=== PATIENT | male | born 1955 | race Caucasian/White ===

== ENCOUNTER 2019-08-31 00:25 | Observation (INO) ==
[2019-08-31] MEDS ORDERED: Isovue-370 500 ML BOTTLE IVP ONE (00:46)
[2019-08-31] MEDS ORDERED: *HR* FentaNYL (PF) 100 MCG/2 ML VIAL IVP ONE ×2 (00:47→21:55)
[2019-08-31 01:32] LABS: Basophils # 0.1 K/mcL (0.0-0.2); Basophils % 0.6 %; Eosinophils # 0.4 K/mcL (0.0-0.6); Eosinophils % 3.9 %; Hematocrit 40.6 % (37.5-50.1); Hemoglobin 13.2 g/dL (12.9-16.9); Immature Granulocytes % 0.4 % (0-4); Lymphocytes # 1.6 K/mcL (0.6-4.6); Lymphocytes % 17.5 %; Mean Corpuscular HGB Conc 32.5 g/dL (31.6-35.5); Mean Corpuscular Hemoglobin 29.3 pg (28.0-33.3); Mean Corpuscular Volume 90.2 fL (83.0-100.0); Mean Platelet Volume 11.4 fL (9.4-12.4); Monocytes # 0.7 K/mcL (0.0-1.3); Monocytes % 7.4 %; Neutrophils # 6.3 K/mcL (1.6-8.9); Platelet Count 250 K/mcL (140-400); Red Cell Distribution Width 13.2 % (11.5-14.5); Segmented Neutrophils % 70.2 %
[2019-08-31 01:41] LABS: INR 1.7; Prothrombin Time 19.6 Seconds (9.4-12.1)
[2019-08-31 01:44] LABS: Activated Partial Thrombo Time 38.9 Seconds (26.0-36.0)
[2019-08-31 01:52] LABS: Albumin 4.1 g/dL (3.5-5.7); Albumin/Globulin Ratio 1.5 (1.1-2.2); Bilirubin,Indirect 0.5 mg/dL (0.0-1.2); Bilirubin,Total 0.5 mg/dL (0.3-1.0); Globulin 2.8 g/dL (2.4-3.5); Total Protein 6.9 g/dL (6.4-8.9)
[2019-08-31 01:59] LABS: BUN/Creatinine Ratio 13 (6-26); Blood Urea Nitrogen 14 mg/dL (8-23); Carbon Dioxide 21 mEq/L (23-29); Chloride 93 mEq/L (98-107); Osmolality,Calculated 288 (280-300); Potassium 4.1 mEq/L (3.5-5.1); Sodium 127 mEq/L (136-145); Troponin I < 0.03 ng/mL (< 0.04); eGFR For African Americans > 60 (> 60); eGFR For Non-African Americans > 60 (> 60)
[2019-08-31 02:30] LABS: Glucose 515 mg/dL (70-105)
[2019-08-31] MEDS ORDERED: cefTRIAXone 1,000 MG in Water for inj. (sterile) 10 ML IVP ONE (03:15)
[2019-08-31] MEDS ORDERED: Azithromycin 500 MG in 0.9 % Sodium Chloride 250 ML IVPB ONE (03:15)
[2019-08-31] MEDS ORDERED: 0.9 % Sodium Chloride 1,000 ML IVC ONE (03:16)
[2019-08-31] MEDS ORDERED: Insulin Regular, Human 100 UNIT/ML SQ ONE (03:17)
[2019-08-31] MEDS ORDERED: *HR* Dextrose 50 % in Water (Syg) 50 ML SYRINGE IVP PRN ×2 (04:42→09:28)
[2019-08-31] MEDS ORDERED: D5% in Water 1,000 ML IVC PRN ×2 (04:42→09:28)
[2019-08-31] MEDS ORDERED: Morphine Sulfate 2 MG/ML SYRINGE IVP PRN ×2 (04:42→20:00)
[2019-08-31] MEDS ORDERED: Aspirin 325 MG TABLET PO ONE (04:42)
[2019-08-31] MEDS ORDERED: Dextrose Gel 15 GM/37.5 ML TUBE PO PRN ×4 (04:42→09:28)
[2019-08-31] MEDS ORDERED: Naloxone 0.4 MG/ML INJ IVP PRN (04:42)
[2019-08-31] MEDS ORDERED: 0.9 % Sodium Chloride 1,000 ML IVC SCH (04:45)
[2019-08-31] MEDS ORDERED: Insulin LISPRO 300 UNITS/3 ML VIAL SQ SCH (04:52)
[2019-08-31] MEDS ORDERED: Morphine Sulfate 2 MG/ML SYRINGE IVP ONE (04:55)
[2019-08-31] MEDS ORDERED: *HR* Heparin 5,000 UNIT/ML VIAL IVP ONE (05:02)
[2019-08-31] MEDS ORDERED: *HR* Heparin 5,000 UNIT/ML VIAL IVP PRN ×2 (05:02)
[2019-08-31] MEDS ORDERED: Heparin 25,000 UNIT/250 ML D5W 25,000 UNIT/250 ML IV.SOLN IVC SCH (05:15)
[2019-08-31] MEDS ORDERED: Benzonatate 100 MG CAPSULE PO PRN (06:02)
[2019-08-31 07:03] LABS: Heparin anti-factor XA UFH 0.05 IU/mL (0.30-0.70)
[2019-08-31 07:04] LABS: INR 1.8; Prothrombin Time 20.8 Seconds (9.4-12.1)
[2019-08-31 08:31] LABS: VBG HCO3 22 mEq/L (21-27); VBG PCO2 47 mmHg (41-51); VBG PH 7.29 pH Units (7.32-7.42); VBG PO2 67 mmHg (25-50)
[2019-08-31 08:35] LABS: Hemoglobin 12.6 g/dL (12.9-16.9); Mean Corpuscular HGB Conc 32.3 g/dL (31.6-35.5); Mean Corpuscular Hemoglobin 29.3 pg (28.0-33.3); Mean Corpuscular Volume 90.7 fL (83.0-100.0); Mean Platelet Volume 11.7 fL (9.4-12.4); Platelet Count 196 K/mcL (140-400); Red Cell Distribution Width 13.3 % (11.5-14.5); White Blood Count 12.1 K/mcL (4.3-11.1)
[2019-08-31 08:57] LABS: Cholesterol 198 mg/dL (< 200); HDL Cholesterol 22 mg/dL (40-59); Triglycerides 618 mg/dL (< 150); Troponin I < 0.03 ng/mL (< 0.04)
[2019-08-31 09:02] LABS: Alanine Aminotransferase 8 Units/L (7-52); Albumin 3.8 g/dL (3.5-5.7); Albumin/Globulin Ratio 1.4 (1.1-2.2); Alkaline Phosphatase 108 Units/L (34-104); Aspartate Amino Transferase 11 Units/L (13-39); BUN/Creatinine Ratio 17 (6-26); Bilirubin,Total 0.5 mg/dL (0.3-1.0); Blood Urea Nitrogen 19 mg/dL (8-23); Calcium 8.7 mg/dL (8.6-10.3); Carbon Dioxide 21 mEq/L (23-29); Chloride 97 mEq/L (98-107); Globulin 2.8 g/dL (2.4-3.5); Glucose 516 mg/dL (70-105); Magnesium 1.6 mg/dL (1.6-2.6); Osmolality,Calculated 293 (280-300); Sodium 129 mEq/L (136-145); Total Protein 6.6 g/dL (6.4-8.9); eGFR For African Americans > 60 (> 60); eGFR For Non-African Americans > 60 (> 60)
[2019-08-31 09:08] LABS: Thyroid Stimulating Hormone 1.011 mcIU/mL (0.340-5.600)
[2019-08-31] MEDS: Insulin LISPRO 300 UNITS/3 ML VIAL SQ SCH ×4 (09:45→20:21)
[2019-08-31] MEDS: Fenofibrate 54 MG TABLET PO SCH (09:53)
[2019-08-31] MEDS: Nitroglycerin 0.4 MG TAB.SUBL SL PRN ×2 (12:03→12:08)
[2019-08-31] MEDS: Ketorolac 30 MG/ML VIAL IVP PRN (13:35)
[2019-08-31] MEDS: Insulin DETEMIR 100 UNIT/ML X5UNITS SQ SCH (20:21)
[2019-09-01] MEDS ORDERED: *HR* HYDROmorphone (PF) 1 MG/ML SYRINGE IVP ONE (00:03)
[2019-09-01] MEDS: *HR* HYDROmorphone (PF) 1 MG/ML SYRINGE IVP PRN ×3 (07:55→20:55)
[2019-09-01] MEDS: Fenofibrate 54 MG TABLET PO SCH (08:00)
[2019-09-01] MEDS: Insulin DETEMIR 100 UNIT/ML X5UNITS SQ SCH ×2 (08:08→21:14)
[2019-09-01] MEDS: levoFLOXacin 750 MG/150 ML 750 MG/150 ML BAG IVPB SCH (08:09)
[2019-09-01] MEDS: Insulin LISPRO 300 UNITS/3 ML VIAL SQ SCH ×4 (08:09→21:14)
[2019-09-01 08:54] LABS: Bilirubin,Urine Small (Negative); Blood,Urine Negative (Negative); Clarity,Urine Clear (Clear); Color,Urine Yellow (Yellow); Glucose,Urine (UA) >=1000 mg/dL (Normal); Ketones,Urine 15 mg/dL (Negative); Leukocyte Esterase,Urine Negative (Negative); Nitrite,Urine Negative (Negative); PH,Urine 5.5 pH Units (5.0-8.0); Protein,Urine 30 mg/dL (Neg-Trace); Specific Gravity,Urine > 1.030 (1.010-1.025); Urobilinogen,Urine Normal (Normal)
[2019-09-01 08:55] LABS: Bacteria,Urine None Seen per hpf (None-Few); Hyaline Casts,Urine None Seen per lpf (None-Few); RBC,Urine 0-3 per hpf (0-3); Squamous Epithelial Cell,Urine Many per lpf (None-Few); WBC,Urine 0-3 per hpf (0-3)
[2019-09-01 09:05] LABS: Amphetamine Screen,Urine Negative ng/mL (Cutoff=1000); Barbiturate Screen,Urine Negative ng/mL (Cutoff=200); Benzodiazepines Screen,Urine Negative ng/mL (Cutoff=200); Cannabinoid Screen,Urine Negative ng/mL (Cutoff = 50); Cocaine Screen,Urine Negative ng/mL (Cutoff= 300); Opiate Screen,Urine Positive ng/mL (Cutoff=300); Phencyclidine Screen,Urine Negative ng/mL (Cutoff=25)
[2019-09-01 09:08] LABS: Estimated Average Glucose 378 mg/dl
[2019-09-01 11:28] LABS: Basophils % 0.2 %; Eosinophils % 0.2 %; Hematocrit 39.7 % (37.5-50.1); Hemoglobin 12.8 g/dL (12.9-16.9); Immature Granulocytes % 0.5 % (0-4); Lymphocytes # 0.6 K/mcL (0.6-4.6); Mean Corpuscular HGB Conc 32.2 g/dL (31.6-35.5); Mean Corpuscular Hemoglobin 29.1 pg (28.0-33.3); Mean Corpuscular Volume 90.2 fL (83.0-100.0); Mean Platelet Volume 11.2 fL (9.4-12.4); Monocytes # 0.8 K/mcL (0.0-1.3); Monocytes % 5.3 %; Neutrophils # 13.1 K/mcL (1.6-8.9); Platelet Count 206 K/mcL (140-400); Red Cell Distribution Width 13.6 % (11.5-14.5); Segmented Neutrophils % 89.8 %; White Blood Count 14.6 K/mcL (4.3-11.1)
[2019-09-01 11:47] LABS: BUN/Creatinine Ratio 22 (6-26); Blood Urea Nitrogen 26 mg/dL (8-23); Calcium 9.1 mg/dL (8.6-10.3); Carbon Dioxide 23 mEq/L (23-29); Chloride 99 mEq/L (98-107); Glucose 369 mg/dL (70-105); Osmolality,Calculated 292 (280-300); Potassium 4.3 mEq/L (3.5-5.1); Sodium 131 mEq/L (136-145); eGFR For African Americans > 60 (> 60); eGFR For Non-African Americans > 60 (> 60)
[2019-09-01] MEDS ORDERED: *HR* OxyCODONE/APAP 5/325 TABLET PO PRN (13:02)
[2019-09-01] MEDS: Ketorolac 30 MG/ML VIAL IVP PRN (17:46)
[2019-09-01] MEDS ORDERED: *HR* OxyCODONE/APAP 5/325 TABLET PO ONE (18:19)
[2019-09-01] MEDS: Gabapentin 300 MG CAPSULE PO SCH (20:56)
[2019-09-01] MEDS ORDERED: NON-FORMULARY MEDICATION 1 EACH EACH (Carvedilol 12.5 MG) PO SCH (21:00)
[2019-09-01] MEDS: *HR* OxyCODONE/APAP 5/325 TABLET PO PRN (22:35)
[2019-09-02] MEDS: Ketorolac 30 MG/ML VIAL IVP PRN (02:54)
[2019-09-02] MEDS: *HR* OxyCODONE/APAP 5/325 TABLET PO PRN ×3 (02:54→17:54)
[2019-09-02 05:55] LABS: Basophils % 0.2 %; Eosinophils # 0.1 K/mcL (0.0-0.6); Hematocrit 34.2 % (37.5-50.1); Immature Granulocytes % 0.9 % (0-4); Lymphocytes # 0.7 K/mcL (0.6-4.6); Mean Corpuscular HGB Conc 31.6 g/dL (31.6-35.5); Mean Corpuscular Hemoglobin 29.5 pg (28.0-33.3); Mean Corpuscular Volume 93.4 fL (83.0-100.0); Mean Platelet Volume 11.8 fL (9.4-12.4); Monocytes # 0.8 K/mcL (0.0-1.3); Neutrophils # 9.9 K/mcL (1.6-8.9); Platelet Count 185 K/mcL (140-400); Red Blood Count 3.66 M/mcL (4.19-5.50); Red Cell Distribution Width 13.9 % (11.5-14.5); Segmented Neutrophils % 84.9 %; White Blood Count 11.7 K/mcL (4.3-11.1)
[2019-09-02 06:04] LABS: INR 1.4; Prothrombin Time 16.4 Seconds (9.4-12.1)
[2019-09-02 06:06] LABS: Hemoglobin 10.8 g/dL (12.9-16.9)
[2019-09-02 06:15] LABS: BUN/Creatinine Ratio 25 (6-26); Blood Urea Nitrogen 34 mg/dL (8-23); Calcium 9.1 mg/dL (8.6-10.3); Carbon Dioxide 25 mEq/L (23-29); Chloride 100 mEq/L (98-107); Glucose 261 mg/dL (70-105); Osmolality,Calculated 293 (280-300); Potassium 3.9 mEq/L (3.5-5.1); Sodium 133 mEq/L (136-145); eGFR For African Americans > 60 (> 60); eGFR For Non-African Americans 53 (> 60)
[2019-09-02] MEDS ORDERED: *HR* Propofol 200 MG/20 ML VIAL IVP ONE (06:54)
[2019-09-02] MEDS ORDERED: *HR* FentaNYL (PF) 100 MCG/2 ML VIAL ONE (06:55)
[2019-09-02] MEDS ORDERED: Lidocaine -MPF 4% 5 ML AMPUL ONE (06:56)
[2019-09-02] MEDS ORDERED: Lidocaine -MPF 2% 2 ML VIAL ONE (06:57)
[2019-09-02] MEDS ORDERED: Ondansetron 4 MG/2 ML VIAL ONE (07:08)
[2019-09-02] MEDS ORDERED: *HR* Succinylcholine 200 MG/10 ML VIAL IVP ONE (07:09)
[2019-09-02] MEDS ORDERED: *HR* EPINEPHrine 1 MG/10 ML SYRINGE INTRATRACH PRN (09:00)
[2019-09-02] MEDS ORDERED: NON-FORMULARY MEDICATION 1 EACH EACH (Fenofibrate Nanocrystallized [Fenofibrate] 160 MG) PO SCH (09:00)
[2019-09-02] MEDS ORDERED: Albuterol 2.5 MG/3 ML NEBULIZER ONE (09:17)
[2019-09-02] MEDS: Gabapentin 300 MG CAPSULE PO SCH ×2 (10:53→21:29)
[2019-09-02] MEDS: amLODIPine 5 MG TABLET PO SCH (10:53)
[2019-09-02] MEDS: Fenofibrate 54 MG TABLET PO SCH (10:54)
[2019-09-02] MEDS: Loratadine 10 MG TABLET PO SCH (10:54)
[2019-09-02] MEDS: levoFLOXacin 750 MG/150 ML 750 MG/150 ML BAG IVPB SCH (10:55)
[2019-09-02] MEDS: Insulin LISPRO 300 UNITS/3 ML VIAL SQ SCH ×4 (11:06→21:29)
[2019-09-02] MEDS: Insulin DETEMIR 100 UNIT/ML X5UNITS SQ SCH (11:07)
[2019-09-02] MEDS ORDERED: *HR* Warfarin 5 MG TABLET PO ONE (18:00)
[2019-09-02] MEDS ORDERED: Warfarin perPT PO PRN (18:00)
[2019-09-02 18:59] LABS: Appearance of Body Fluid Cloudy (Clear)
[2019-09-02 19:00] LABS: Volume of Body Fluid 18 mL
[2019-09-02 21:27] LABS: Appearance of Body Fluid Cloudy (Clear); Volume of Body Fluid 15 mL
[2019-09-03 02:29] LABS: Basophils % 0.1 %; Hematocrit 34.3 % (37.5-50.1); INR 1.3; Immature Granulocytes % 0.8 % (0-4); Lymphocytes # 0.6 K/mcL (0.6-4.6); Lymphocytes % 4.8 %; Mean Corpuscular HGB Conc 32.1 g/dL (31.6-35.5); Mean Corpuscular Hemoglobin 28.9 pg (28.0-33.3); Mean Corpuscular Volume 90.3 fL (83.0-100.0); Mean Platelet Volume 11.6 fL (9.4-12.4); Monocytes # 0.7 K/mcL (0.0-1.3); Monocytes % 6.3 %; Neutrophils # 10.3 K/mcL (1.6-8.9); Platelet Count 224 K/mcL (140-400); Prothrombin Time 15.2 Seconds (9.4-12.1); Red Cell Distribution Width 13.8 % (11.5-14.5); White Blood Count 11.7 K/mcL (4.3-11.1)
[2019-09-03 02:41] LABS: BUN/Creatinine Ratio 28 (6-26); Blood Urea Nitrogen 30 mg/dL (8-23); Carbon Dioxide 23 mEq/L (23-29); Chloride 101 mEq/L (98-107); Glucose 162 mg/dL (70-105); Osmolality,Calculated 288 (280-300); Potassium 3.8 mEq/L (3.5-5.1); Sodium 134 mEq/L (136-145); eGFR For African Americans > 60 (> 60); eGFR For Non-African Americans > 60 (> 60)
[2019-09-03 07:14] VITALS: BP 157/80
[2019-09-03] MEDS: Fenofibrate 54 MG TABLET PO SCH (09:58)
[2019-09-03] MEDS: amLODIPine 5 MG TABLET PO SCH (09:58)
[2019-09-03] MEDS: Loratadine 10 MG TABLET PO SCH (09:59)
[2019-09-03] MEDS: Gabapentin 300 MG CAPSULE PO SCH (10:04)
[2019-09-03] MEDS: Insulin LISPRO 300 UNITS/3 ML VIAL SQ SCH (10:04)
[2019-09-03] MEDS: Insulin DETEMIR 100 UNIT/ML X5UNITS SQ SCH (10:05)
[2019-09-03] MEDS: levoFLOXacin 750 MG/150 ML 750 MG/150 ML BAG IVPB SCH (10:06)
[2019-09-03] MEDS ORDERED: levoFLOXacin 750 MG TABLET PO SCH (11:15)
[2019-09-03] MEDS ORDERED: *HR* Warfarin 7.5 MG TABLET PO ONE (18:00)
== END 2019-09-03 13:35 | disposition home or self-care (01) ==
LOC: EMEROOARM 00:25 → 3BNU 00:25 → SUATTDRO 05:30 → 3BNU 06:47
PROVIDERS: ADMIT Internal Medicine; ATTEND Internal Medicine